=== PATIENT | female | born 1995 | race Caucasian/White ===

== ENCOUNTER 2017-10-05 22:58 | Emergency (ER) | payer SELFPAY | END 2017-10-06 01:50 | disposition left against medical advice (07) | LOC: FTE 22:58 | DX: Z53.21 Procedure and treatment not carried out due to patient leaving prior to being seen by health care provider (principal) ==

== ENCOUNTER 2017-10-06 15:52 | Emergency (ER) | payer BC | END 2017-10-06 17:07 | disposition home or self-care (01) | LOC: E/R 15:52 | DX: J20.9 Acute bronchitis, unspecified (principal) | CPT/HCPCS: 99284 ==

== ENCOUNTER 2018-03-03 11:00 | Inpatient (IN) | payer BC ==
[2018-03-03] MEDS: ONDANSETRON 4 MG INJ IV ×2 (12:12→16:54)
[2018-03-03] MEDS: ACETAMINOPHEN 500 MG TAB PO (12:13)
[2018-03-03] MEDS: SOD CHLORIDE 0.9% 1,000 ML IV ×2 (12:13→16:54)
[2018-03-03] MEDS: HYDROmorphONE 1 MG/ML SYG IV (12:13)
[2018-03-03 12:17] LABS: ADD MAN DIFF? NO
[2018-03-03 12:19] LABS: WHITE BLOOD COUNT 23.3 10^3/ul (4.8-10.8)
[2018-03-03 12:19] LABS: ABNORMAL IP MESSAGE 1; BASOPHIL # 0.1 10^3/ul (0.0-0.1); BASOPHILS % 0.3 % (0.0-2.0); HEMATOCRIT 40.5 % (37.0-47.0); HEMOGLOBIN 13.4 g/dl (12.0-16.0); LYMPHOCYTES # 1.4 10^3/ul (0.8-2.9); LYMPHOCYTES % 5.9 % (15.0-51.0); MEAN CORPUSCULAR HEMOGLOBIN 26.3 pg (29.0-33.0); MEAN CORPUSCULAR HGB CONC 33.1 g/dl (32.0-37.0); MEAN CORPUSCULAR VOLUME 79.4 fl (82.0-101.0); MEAN PLATELET VOLUME 10.3 fl (7.4-10.4); MONOCYTE # 1.9 10^3/ul (0.3-0.9); MONOCYTES % 8.1 % (0.0-11.0); NEUTROPHIL # 19.8 10^3/ul (1.6-7.5); NEUTROPHILS % 85.1 % (39.0-77.0); PLATELET COUNT 264 10^3/UL (140-415)
[2018-03-03 12:26] LABS: POSITIVE DIFF @See below
[2018-03-03 12:40] LABS: ADD UMIC YES; UR ASCORBIC ACID 20 mg/dL (NEGATIVE); UR BILIRUBIN (Dip) NEGATIVE (NEGATIVE); UR BLOOD (Dip) 2+ mg/dL (NEGATIVE); UR CLARITY SLIGHTLY CLOUDY (CLEAR); UR COLOR YELLOW (YELLOW); UR GLUCOSE (Dip) NEGATIVE (NEGATIVE); UR KETONES (Dip) 2+ mg/dL (NEGATIVE); UR LEUKOCYTE ESTERASE (Dip) 1+ Leu/ul (NEGATIVE); UR MUCUS FEW /HPF (NONE SEEN); UR NITRITE (Dip) NEGATIVE (NEGATIVE); UR RBC 40 /HPF (0-5); UR SQUAMOUS EPITHELIAL CELL FEW /HPF (FEW); UR TOTAL PROTEIN (Dip) 2+ mg/dl (NEGATIVE); UR UROBILINOGEN (Dip) NEGATIVE (NEGATIVE); UR WBC 16 /HPF (0-5)
[2018-03-03 12:43] LABS: ALANINE AMINOTRANSFERASE 28 IU/L (13-69); ALBUMIN 4.3 g/dl (3.3-4.9); ALBUMIN/GLOBULIN RATIO 1.07; ALKALINE PHOSPHATASE 92 IU/L (42-121); ANION GAP 18 (8-16); ASPARTATE AMINO TRANSFERASE 20 IU/L (15-46); BILIRUBIN,INDIRECT 0.5 mg/dl (0-1.1); BILIRUBIN,TOTAL 0.5 mg/dl (0.2-1.3); BLOOD UREA NITROGEN 8 mg/dl (7-20); CALCIUM 8.6 mg/dl (8.4-10.2); CARBON DIOXIDE 22 mmol/L (21-31); CHLORIDE 105 mmol/L (97-110); CREATININE 0.67 mg/dl (0.44-1.00); GLUCOSE 115 mg/dl (70-220); LIPASE 19 U/L (23-300); POTASSIUM 3.2 mmol/L (3.5-5.1); SODIUM 142 mmol/L (135-144); TOTAL PROTEIN 8.3 g/dl (6.1-8.1)
[2018-03-03] MEDS: PIPER-TAZO 3.375 GM IV (PMX) 100 ML IVPB (13:35)
[2018-03-03] MEDS ORDERED: SOD CHLORIDE 0.9% 1,000 ML IV (14:21)
[2018-03-03] MEDS ORDERED: ONDANSETRON 4 MG INJ IV (14:30)
[2018-03-03] MEDS ORDERED: NACL 0.9% 3 ML SYG IV (16:30)
[2018-03-03] MEDS: CEFTRIAXONE 1 GM/50 ML (PMX) 50 ML IVPB (16:51)
[2018-03-03] MEDS: POTASSIUM CHLORIDE (SR) 20 MEQ TAB PO (16:55)
[2018-03-03] MEDS: HYDROCODONE/APAP (5/325) TAB PO (16:55)
[2018-03-03 17:42] LABS: HEMOGLOBIN A1C 5.6 % (0-5.9)
[2018-03-03 17:59] LABS: FREE T4 (FREE THYROXINE) 1.06 ng/dl (0.79-2.35)
[2018-03-03] MEDS: ACETAMINOPHEN 325 MG TAB PO (20:05)
[2018-03-03] MEDS: KETOROLAC 30 MG INJ IV (20:05)
[2018-03-03] MEDS: ACET/BUTAL/CAFF TAB PO (22:18)
[2018-03-03 23:11] LABS: LACTIC ACID 0.8 mmol/L (0.5-2.0)
[2018-03-03] MEDS: FAMOTIDINE 20 MG INJ IV (23:18)
[2018-03-03] MEDS: DIPHENHYDRAMINE 50 MG INJ IV (23:18)
[2018-03-04] MEDS: SOD CHLORIDE 0.9% 1,000 ML IV ×5 (00:30→19:52)
[2018-03-04] MEDS: morphine 2 MG INJ IV (06:47)
[2018-03-04] MEDS: ONDANSETRON 4 MG INJ IV ×2 (06:50→18:55)
[2018-03-04 07:29] LABS: ADD MAN DIFF? NO
[2018-03-04 07:33] LABS: BASOPHILS % 0.2 % (0.0-2.0); EOSINOPHILS % 0.2 % (0.0-7.0); HEMATOCRIT 35.5 % (37.0-47.0); HEMOGLOBIN 11.5 g/dl (12.0-16.0); LYMPHOCYTES # 1.9 10^3/ul (0.8-2.9); MEAN CORPUSCULAR HEMOGLOBIN 26.2 pg (29.0-33.0); MEAN CORPUSCULAR HGB CONC 32.4 g/dl (32.0-37.0); MEAN CORPUSCULAR VOLUME 80.9 fl (82.0-101.0); MEAN PLATELET VOLUME 10.5 fl (7.4-10.4); MONOCYTE # 1.3 10^3/ul (0.3-0.9); NEUTROPHIL # 12.4 10^3/ul (1.6-7.5); NEUTROPHILS % 78.9 % (39.0-77.0); PLATELET COUNT 236 10^3/UL (140-415); RED BLOOD COUNT 4.39 10^6/ul (4.20-5.40); RED CELL DISTRIBUTION WIDTH 14.4 % (11.5-14.5)
[2018-03-04 07:33] LABS: WHITE BLOOD COUNT 15.7 10^3/ul (4.8-10.8)
[2018-03-04 07:59] LABS: ALANINE AMINOTRANSFERASE 22 IU/L (13-69); ALBUMIN 3.2 g/dl (3.3-4.9); ALBUMIN/GLOBULIN RATIO 1.03; ALKALINE PHOSPHATASE 78 IU/L (42-121); ANION GAP 16 (8-16); ASPARTATE AMINO TRANSFERASE 16 IU/L (15-46); BILIRUBIN,INDIRECT 0.4 mg/dl (0-1.1); BILIRUBIN,TOTAL 0.4 mg/dl (0.2-1.3); BLOOD UREA NITROGEN 7 mg/dl (7-20); CALCIUM 8.5 mg/dl (8.4-10.2); CARBON DIOXIDE 21 mmol/L (21-31); CHLORIDE 109 mmol/L (97-110); GLUCOSE 79 mg/dl (70-220); POTASSIUM 3.9 mmol/L (3.5-5.1); SODIUM 142 mmol/L (135-144); TOTAL PROTEIN 6.3 g/dl (6.1-8.1)
[2018-03-04 08:01] LABS: CHOL/HDL RATIO 6.3 RATIO; CHOLESTEROL 164 mg/dl (100-200); HDL CHOLESTEROL 26 mg/dl (33-83); LDL CHOLESTEROL,CALCULATED 108 mg/dl; MAGNESIUM 1.8 mg/dl (1.7-2.5); TRIGLYCERIDES 149 mg/dl (0-149)
[2018-03-04] MEDS: ACET/BUTAL/CAFF TAB PO ×2 (08:25→14:23)
[2018-03-04] MEDS: ENOXAPARIN 40 MG/0.4 ML SYG SC (08:29)
[2018-03-04] MEDS: CEFTRIAXONE 1 GM/50 ML (PMX) 50 ML IVPB (16:03)
[2018-03-04] MEDS: traMADol 50 MG TAB PO (19:52)
[2018-03-04] MEDS ORDERED: ACETAMINOPHEN 325 MG TAB (20:11)
[2018-03-04] MEDS: ACETAMINOPHEN 325 MG TAB PO (20:14)
[2018-03-05] MEDS: SOD CHLORIDE 0.9% 1,000 ML IV ×5 (00:30→23:24)
[2018-03-05 06:05] LABS: ADD MAN DIFF? NO
[2018-03-05 06:22] LABS: BASOPHIL # 0.1 10^3/ul (0.0-0.1); BASOPHILS % 0.4 % (0.0-2.0); EOSINOPHILS # 0.1 10^3/ul (0.0-0.5); EOSINOPHILS % 0.4 % (0.0-7.0); HEMOGLOBIN 11.4 g/dl (12.0-16.0); LYMPHOCYTES # 2.2 10^3/ul (0.8-2.9); MEAN CORPUSCULAR HGB CONC 32.6 g/dl (32.0-37.0); MEAN CORPUSCULAR VOLUME 79.9 fl (82.0-101.0); MEAN PLATELET VOLUME 10.7 fl (7.4-10.4); MONOCYTES % 8.5 % (0.0-11.0); NEUTROPHIL # 8.2 10^3/ul (1.6-7.5); NEUTROPHILS % 70.7 % (39.0-77.0); PLATELET COUNT 278 10^3/UL (140-415); RED BLOOD COUNT 4.38 10^6/ul (4.20-5.40); RED CELL DISTRIBUTION WIDTH 13.9 % (11.5-14.5)
[2018-03-05 06:22] LABS: WHITE BLOOD COUNT 11.6 10^3/ul (4.8-10.8)
[2018-03-05] MEDS: traMADol 50 MG TAB PO ×2 (06:32→21:11)
[2018-03-05 06:46] LABS: ANION GAP 15 (8-16); BLOOD UREA NITROGEN 4 mg/dl (7-20); CALCIUM 8.5 mg/dl (8.4-10.2); CARBON DIOXIDE 21 mmol/L (21-31); CHLORIDE 108 mmol/L (97-110); CREATININE 0.54 mg/dl (0.44-1.00); GLUCOSE 84 mg/dl (70-220); POTASSIUM 3.3 mmol/L (3.5-5.1); SODIUM 141 mmol/L (135-144)
[2018-03-05 06:55] LABS: MAGNESIUM 1.7 mg/dl (1.7-2.5)
[2018-03-05 06:55] LABS: PHOSPHORUS 3.1 mg/dl (2.5-4.9)
[2018-03-05] MEDS: ACET/BUTAL/CAFF TAB PO ×2 (07:01→16:24)
[2018-03-05] MEDS: ACETAMINOPHEN 325 MG TAB PO ×2 (08:01→22:52)
[2018-03-05] MEDS: ENOXAPARIN 40 MG/0.4 ML SYG SC ×2 (08:02→08:27)
[2018-03-05] MEDS: ONDANSETRON 4 MG INJ IV (08:10)
[2018-03-05] MEDS: FLUCONAZOLE 100 MG TAB PO (11:35)
[2018-03-05] MEDS: POTASSIUM CHLORIDE (SR) 20 MEQ TAB PO (11:35)
[2018-03-05] MEDS: CEFTRIAXONE 1 GM/50 ML (PMX) 50 ML IVPB (16:08)
[2018-03-06 00:05] LABS: ADD UMIC YES; UR ASCORBIC ACID NEGATIVE (NEGATIVE); UR BILIRUBIN (Dip) NEGATIVE (NEGATIVE); UR BLOOD (Dip) 2+ mg/dL (NEGATIVE); UR CLARITY CLEAR (CLEAR); UR COLOR STRAW (YELLOW); UR GLUCOSE (Dip) NEGATIVE (NEGATIVE); UR KETONES (Dip) 1+ mg/dL (NEGATIVE); UR LEUKOCYTE ESTERASE (Dip) NEGATIVE Leu/ul (NEGATIVE); UR NITRITE (Dip) NEGATIVE (NEGATIVE); UR RBC 46 /HPF (0-5); UR SPECIFIC GRAVITY (Dip) 1.005 (1.003-1.030); UR TOTAL PROTEIN (Dip) NEGATIVE (NEGATIVE); UR UROBILINOGEN (Dip) NEGATIVE (NEGATIVE); UR WBC 2 /HPF (0-5)
[2018-03-06 06:12] LABS: ADD MAN DIFF? NO
[2018-03-06 06:17] LABS: BASOPHIL # 0.1 10^3/ul (0.0-0.1); BASOPHILS % 0.6 % (0.0-2.0); EOSINOPHILS # 0.1 10^3/ul (0.0-0.5); EOSINOPHILS % 1.2 % (0.0-7.0); HEMATOCRIT 36.3 % (37.0-47.0); HEMOGLOBIN 11.4 g/dl (12.0-16.0); LYMPHOCYTES # 2.5 10^3/ul (0.8-2.9); MEAN CORPUSCULAR HEMOGLOBIN 25.2 pg (29.0-33.0); MEAN CORPUSCULAR HGB CONC 31.4 g/dl (32.0-37.0); MEAN CORPUSCULAR VOLUME 80.3 fl (82.0-101.0); MEAN PLATELET VOLUME 10.4 fl (7.4-10.4); MONOCYTE # 0.8 10^3/ul (0.3-0.9); MONOCYTES % 9.8 % (0.0-11.0); NEUTROPHIL # 4.5 10^3/ul (1.6-7.5); NEUTROPHILS % 55.7 % (39.0-77.0); PLATELET COUNT 299 10^3/UL (140-415); RED BLOOD COUNT 4.52 10^6/ul (4.20-5.40); RED CELL DISTRIBUTION WIDTH 14.1 % (11.5-14.5)
[2018-03-06 06:56] LABS: PHOSPHORUS 4.3 mg/dl (2.5-4.9)
[2018-03-06 06:56] LABS: MAGNESIUM 1.8 mg/dl (1.7-2.5)
[2018-03-06 07:09] LABS: ANION GAP 14 (8-16); BLOOD UREA NITROGEN 3 mg/dl (7-20); CALCIUM 8.6 mg/dl (8.4-10.2); CARBON DIOXIDE 24 mmol/L (21-31); CHLORIDE 107 mmol/L (97-110); CREATININE 0.51 mg/dl (0.44-1.00); GLUCOSE 89 mg/dl (70-220); POTASSIUM 3.3 mmol/L (3.5-5.1); SODIUM 142 mmol/L (135-144)
[2018-03-06] MEDS: ACET/BUTAL/CAFF TAB PO ×2 (08:28→17:06)
[2018-03-06] MEDS: SOD CHLORIDE 0.9% 1,000 ML IV ×3 (08:28→17:10)
[2018-03-06] MEDS: FLUCONAZOLE 100 MG TAB PO (08:28)
[2018-03-06] MEDS: ENOXAPARIN 40 MG/0.4 ML SYG SC (08:29)
[2018-03-06] MEDS: ONDANSETRON 4 MG INJ IV ×2 (08:36→17:05)
[2018-03-06] MEDS: traMADol 50 MG TAB PO (14:39)
[2018-03-06] MEDS: CEFTRIAXONE 1 GM/50 ML (PMX) 50 ML IVPB (15:58)
[2018-03-06] MEDS: POTASSIUM CHLORIDE (SR) 10 MEQ TAB PO (16:44)
[2018-03-06] MEDS: morphine LIQ (10 MG/5 ML) CUP PO (21:58)
[2018-03-06] MEDS: HYDROmorphONE 0.5 MG/0.5 ML SYG IV (23:18)
[2018-03-07] MEDS: SOD CHLORIDE 0.9% 1,000 ML IV ×3 (01:52→23:41)
[2018-03-07] MEDS: ACET/BUTAL/CAFF TAB PO (02:07)
[2018-03-07 06:22] LABS: ADD MAN DIFF? NO
[2018-03-07 06:28] LABS: BASOPHIL # 0.1 10^3/ul (0.0-0.1); BASOPHILS % 0.8 % (0.0-2.0); EOSINOPHILS # 0.1 10^3/ul (0.0-0.5); EOSINOPHILS % 1.4 % (0.0-7.0); HEMATOCRIT 35.1 % (37.0-47.0); HEMOGLOBIN 11.3 g/dl (12.0-16.0); LYMPHOCYTES # 2.4 10^3/ul (0.8-2.9); LYMPHOCYTES % 34.2 % (15.0-51.0); MEAN CORPUSCULAR HEMOGLOBIN 25.7 pg (29.0-33.0); MEAN CORPUSCULAR HGB CONC 32.2 g/dl (32.0-37.0); MEAN PLATELET VOLUME 9.8 fl (7.4-10.4); MONOCYTE # 0.7 10^3/ul (0.3-0.9); MONOCYTES % 9.1 % (0.0-11.0); NEUTROPHIL # 3.6 10^3/ul (1.6-7.5); NEUTROPHILS % 50.7 % (39.0-77.0); PLATELET COUNT 332 10^3/UL (140-415); RED BLOOD COUNT 4.39 10^6/ul (4.20-5.40); RED CELL DISTRIBUTION WIDTH 14.3 % (11.5-14.5)
[2018-03-07 06:28] LABS: WHITE BLOOD COUNT 7.1 10^3/ul (4.8-10.8)
[2018-03-07 06:53] LABS: ANION GAP 13 (8-16); BLOOD UREA NITROGEN 3 mg/dl (7-20); CALCIUM 8.5 mg/dl (8.4-10.2); CARBON DIOXIDE 27 mmol/L (21-31); CHLORIDE 105 mmol/L (97-110); CREATININE 0.55 mg/dl (0.44-1.00); GLUCOSE 86 mg/dl (70-220); MAGNESIUM 1.8 mg/dl (1.7-2.5); POTASSIUM 3.5 mmol/L (3.5-5.1); SODIUM 141 mmol/L (135-144)
[2018-03-07] MEDS: ENOXAPARIN 40 MG/0.4 ML SYG SC (08:29)
[2018-03-07] MEDS: FLUCONAZOLE 100 MG TAB PO (08:29)
[2018-03-07] MEDS ORDERED: VANCOMYCIN IV PER PHARMACY XX (14:00)
[2018-03-07] MEDS: VANCOMYCIN 2 GM in SOD CHLORIDE 0.9% 500 ML IVPB (15:41)
[2018-03-07] MEDS: VANCOMYCIN 1.5 GM in SOD CHLORIDE 0.9% 250 ML IVPB (23:41)
[2018-03-08] MEDS: SOD CHLORIDE 0.9% 1,000 ML IV (08:30)
[2018-03-08] MEDS: ENOXAPARIN 40 MG/0.4 ML SYG SC (09:00)
[2018-03-08] MEDS: FLUCONAZOLE 100 MG TAB PO (09:04)
[2018-03-08] MEDS: VANCOMYCIN 1.5 GM in SOD CHLORIDE 0.9% 250 ML IVPB (09:04)
[2018-03-08 16:08] LABS: VANCOMYCIN,TROUGH 17.9 ug/ml (10.0-20.0)
== END 2018-03-08 15:40 | disposition home or self-care (01) | DRG 872 ==
LOC: E/R 11:00 → PP2 15:31
DX: A41.9 Sepsis, unspecified organism (principal); N10 Acute pyelonephritis; B37.49 Other urogenital candidiasis; E66.9 Obesity, unspecified; Z68.36 Body mass index [BMI] 36.0-36.9, adult
CPT/HCPCS: 36415; 74176; 76705; 80048; 80053; 80061; 80202; 81001; 81025; 83036; 83605; 83690; 83735; 84100; 84439; 84443; 85025; 87040; 87045; 87086; 87177; 96374; 96375; 99285-25; G0378

== ENCOUNTER 2018-12-02 15:19 | Emergency (ER) | payer BC ==
[2018-12-02] MEDS: ONDANSETRON (ODT) 4 MG TAB ODT (18:05)
[2018-12-02] MEDS: HYDROCODONE/APAP (5/325) TAB PO (18:05)
== END 2018-12-02 19:49 | disposition home or self-care (01) ==
LOC: FTE 15:19
DX: R51 Headache (principal)
CPT/HCPCS: 93005; 99283